=== PATIENT | male | born 1970 | race Caucasian/White ===

== ENCOUNTER → 2019-03-29 14:59 | Outpatient (CLI) | payer MEDICARE, SELFPAY ==
[2019-03-29 15:40] LABS: Basophils % 0.3 % (0.1-2.0); Eosinophils % 0.1 % (0.1-12.0); Hematocrit 52.3 % (42.0-52.0); Hemoglobin 17.6 g/dL (14.1-18.0); Lymphocytes # 2.1 K/mm3 (0.7-4.5); Lymphocytes % 18.7 % (10-50); Mean Corpuscular HGB Conc 33.7 g/dL (31.8-35.4); Mean Corpuscular Hemoglobin 31.2 pg (27.0-31.2); Mean Corpuscular Volume 92.7 fl (80-94); Mean Platelet Volume 11.1 fl (7.4-10.4); Monocytes # 0.6 K/mm3 (0.1-1.0); Monocytes % 5.7 % (1.7-9.3); Neutrophils # 8.5 K/mm3 (1.8-7.8); Neutrophils % 75.2 % (37.0-80.0); Platelet Count 193 K/mm3 (142-424); Red Blood Count 5.64 M/mm3 (4.60-6.20); Red Cell Distribution Width 12.9 % (11.5-17.5); White Blood Count 11.3 K/mm3 (4.8-10.8)
[2019-03-29 16:44] LABS: Alanine Aminotransferase 20 U/L (12-78); Albumin Level 4.3 gm/dL (3.4-5.0); Albumin/Globulin Ratio 1.2 (1.1-1.8); Alkaline Phosphatase 111 U/L (46-116); Anion Gap 17.6 mEq/L (5-15); Aspartate Amino Transferase 10 U/L (15-37); Bilirubin,Total 0.6 mg/dL (0.2-1.0); Blood Urea Nitrogen 13 mg/dL (7-18); Calcium 9.9 mg/dL (8.5-10.1); Carbon Dioxide 25 mmol/L (21.0-32.0); Chloride 104 mmol/L (98-107); Chol/HDL Ratio 7.6 (1-3.5); Cholesterol 258 mg/dL (140-200); Creatinine,Serum 1.07 mg/dL (0.70-1.30); Estimated Glomerular Filt Rate 73 ml/min (>60); GFR (African American) 89 ML/MIN (>60); Globulin 3.5 gm/dl (1.3-3.2); Glucose 122 mg/dL (74-106); HDL Cholesterol 34 mg/dL (27-67); LDL Cholesterol 202 mg/dL (0-130); Potassium 4.6 mmoL/L (3.5-5.1); Sodium 142 mmol/L (136-145); T4 (Thyroxine) 8.8 ug/dl (4.7-13.3); Thyroid Stimulating Hormone 0.71 uIU/ml (0.358-3.740); Total Protein,Serum 7.8 gm/dL (6.4-8.2); Triglycerides 111 mg/dL (30-200); VLDL Cholesterol 22 mg/dL (0-40)
[2019-03-30 15:09] LABS: Hemoglobin A1C 5.6 % (0.0-7.0)
[2019-03-31 11:27] LABS: Vitamin D 25 Hydroxy 17.8 ng/mL (30.0-100.0)
== END ==
PROVIDERS: Visit Provider Physician Assistant
DX: I10 Essential (primary) hypertension (principal); R73.9 Hyperglycemia, unspecified
CPT/HCPCS: 80053; 80061; 82652; 83036; 84436; 84443; 85025

== ENCOUNTER → 2020-06-18 14:14 | Outpatient (CLI) | payer MEDICARE, MEDICAID, SELFPAY ==
[2020-06-18 14:35] LABS: Alanine Aminotransferase 41 U/L (12-78); Albumin Level 4.7 g/dl (3.5-5.0); Albumin/Globulin Ratio 1.6 (1.1-1.8); Alkaline Phosphatase 109 U/L (38-126); Anion Gap 16.4 mEq/L (5-15); Aspartate Amino Transferase 30 U/L (17-59); Bilirubin,Total 0.6 mg/dl (0.2-1.3); Blood Urea Nitrogen 14 mg/dl (9-20); Calcium 9.8 mg/dl (8.4-10.2); Carbon Dioxide 24 mmol/L (22.0-30.0); Chloride 104 mmol/L (98-107); Chol/HDL Ratio 8.6 (1-3.5); Cholesterol 250 mg/dl (140-200); Estimated Glomerular Filt Rate 79 ml/min (>60); GFR (African American) 96 ML/MIN (>60); Globulin 2.9 g/dL (1.3-3.2); Glucose 104 mg/dl (74-100); HDL Cholesterol 29 mg/dl (40-60); Potassium 4.4 mmoL/L (3.5-5.1); Sodium 140 mmol/L (136-145); Total Protein,Serum 7.6 g/dl (6.3-8.2); Triglycerides 354 mg/dl (30-150); VLDL Cholesterol 71 mg/dL (0-40)
[2020-06-18 14:38] LABS: Basophils # 0.1 K/mm3 (0-0.2); Basophils % 0.4 % (0.1-2.0); Eosinophils # 0.2 K/mm3 (0.0-0.4); Eosinophils % 1.4 % (0.1-12.0); Hematocrit 49.2 % (42.0-52.0); Hemoglobin 17.1 g/dL (14.1-18.0); Lymphocytes # 2.8 K/mm3 (0.7-4.5); Lymphocytes % 16.4 % (10-50); Mean Corpuscular HGB Conc 34.7 g/dL (31.8-35.4); Mean Corpuscular Hemoglobin 31.6 pg (27.0-31.2); Mean Corpuscular Volume 91.2 fl (80-94); Mean Platelet Volume 10.9 fl (7.4-10.4); Monocytes % 5.8 % (1.7-9.3); Neutrophils # 13.1 K/mm3 (1.8-7.8); Platelet Count 184 K/mm3 (142-424); Red Blood Count 5.39 M/mm3 (4.60-6.20); Red Cell Distribution Width 13.7 % (11.5-17.5); White Blood Count 17.2 K/mm3 (4.8-10.8)
[2020-06-18 14:46] LABS: Direct LDL Cholesterol 124.99 mg/dL (100-129)
[2020-06-18 14:52] LABS: 25-OH Vitamin D, Total 29.4 ng/mL (30-100)
[2020-06-18 14:59] LABS: MANUAL DIFFERENTIAL MANUAL DIFFERENTIAL (MANUAL DIFF)
[2020-06-18 15:06] LABS: Prostate Specific Ag Screen 1.8 ng/ml (0.0-4.0); Thyroid Stimulating Hormone 1.07 uIU/mL (0.465-4.68)
[2020-06-18 16:32] LABS: Eosinophils % 4 % (0-3); Lymphocytes % 10 % (10-50); Monocytes % 2 % (2-9); Neutrophils % 82 % (42-76); Total Cells Counted 100
[2020-06-18 16:33] LABS: Platelet Estimate Normal; RBC Morphology Normal
== END ==
PROVIDERS: Visit Provider Physician Assistant
DX: E55.9 Vitamin D deficiency, unspecified (principal); E78.00 Pure hypercholesterolemia, unspecified; I10 Essential (primary) hypertension; M54.5 Low back pain; Z12.5 Encounter for screening for malignant neoplasm of prostate
CPT/HCPCS: 80053; 80061; 82306; 84439; 84443; 85007; 85025; G0103

== ENCOUNTER → 2020-06-25 17:51 | Outpatient (CLI) | payer MEDICARE, MEDICAID, SELFPAY ==
[2020-06-25 18:17] LABS: Basophils # 0.1 K/mm3 (0-0.2); Basophils % 0.6 % (0.1-2.0); Eosinophils # 0.2 K/mm3 (0.0-0.4); Eosinophils % 1.9 % (0.1-12.0); Hematocrit 49.5 % (42.0-52.0); Hemoglobin 16.6 g/dL (14.1-18.0); Lymphocytes # 4.2 K/mm3 (0.7-4.5); Lymphocytes % 33.2 % (10-50); Mean Corpuscular HGB Conc 33.5 g/dL (31.8-35.4); Mean Corpuscular Volume 92.3 fl (80-94); Mean Platelet Volume 11.6 fl (7.4-10.4); Monocytes # 0.8 K/mm3 (0.1-1.0); Monocytes % 5.9 % (1.7-9.3); Neutrophils # 7.5 K/mm3 (1.8-7.8); Neutrophils % 58.4 % (37.0-80.0); Platelet Count 201 K/mm3 (142-424); Red Blood Count 5.36 M/mm3 (4.60-6.20); Red Cell Distribution Width 13.4 % (11.5-17.5); White Blood Count 12.8 K/mm3 (4.8-10.8)
== END ==
PROVIDERS: Visit Provider Physician Assistant
DX: D72.9 Disorder of white blood cells, unspecified (principal); E78.00 Pure hypercholesterolemia, unspecified
CPT/HCPCS: 85025

== ENCOUNTER 2020-07-09 11:00 | Outpatient (RCR) | payer MEDICARE, MEDICAID, SELFPAY ==
--- NOTE | 2020-06-25 14:43 | HMH.PTOPEV ---
PT Outpatient Evaluation Rehab PT Outpatient Evaluation Start: 06/25/20 14:30 Freq: Status: Active Protocol: Document 06/25/20 14:30 KARLOS (Rec: 06/25/20 14:43 KARLOS [id number]) Electronically Signed By Eulalio Ricci, PT 06/25/20 14:30 Outpatient Therapy Subjective History Subjective History Pt reports h/o chronic LBP for 30+yrs with exacerbation over the last ~year. Pt reports R> L sided LBP with severe R LE radicular s/s (ant R hip pain- sharp) from hip to foot. Pt also reports chronic neck pain for 1-2 yrs. 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 Chief Complaint Pain,Stiff,Clicks,Paresthesia, Weakness Symptom Type Ache,Throb,Sharp,Dull,Stabbing ,Burning,Numbness,Tingling Symptoms Relieved By Rest/Positioning,Heat Symptoms Aggravated By Standing,Bending/Stooping, Physical Activity,Twisting, Walking,Lifting Prior Functional Limitations Lifting,Housework,Standing, Walking Current Functional Limitations Lifting,Housework,Standing, Walking Symptom Description Constant but Variable Level of pain today (0-10) 6 Pain scale - at its best (0-10) 4 Pain scale - at its worst (0-10) 10 Cervical Eval Palpation Cervical Muscles R Cervical Paraspinal,R Upper Trapezius Cervical/Thoracic Palpation Findings Tenderness,Trigger Point Posture Head/C-Spine Posture Sitting Position Flexed Head/C-Spine Posture Standing Position Flexed Flexibility Deficits Upper Trapezius Muscle Length (R) Moderate Tightness Passive Joint Mobility Cervical PIVM WNL: R OA L OA R AA L AA R C2/3 L C2/3 R C3/4 L C3/4 R C4/5 L C4/5 R C5/6 L C5/6 R C6/7 L C6/7 R C7/T1 L C7/T1 AROM Cervical Spine Extension Active Range of 0-45 M
== END 2020-07-09 11:05 | disposition home or self-care (01) ==
LOC: PT 11:00
PROVIDERS: PCP Physician Assistant; Visit Provider Physician Assistant
DX: M54.2 Cervicalgia (principal); M54.5 Low back pain
CPT/HCPCS: 97010; 97012; 97014; 97163; G0283

== ENCOUNTER → 2020-08-23 14:05 | Outpatient (CLI) | payer MEDICARE, MEDICAID, SELFPAY ==
[2020-08-23 14:39] LABS: Amphetamine/Metha Screen,Urine Negative ng/ml (<1000)
[2020-08-23 14:40] LABS: Barbiturates Screen,Urine Negative ng/ml (<200)
[2020-08-23 14:41] LABS: Benzodiazepines Screen,Urine Negative ng/ml (<200)
[2020-08-23 14:42] LABS: Cannabinoid Screen,Urine Positive ng/ml (<50); Cocaine Screen,Urine Negative ng/ml (<300)
[2020-08-23 14:44] LABS: Methadone Screen,Urine Negative ng/ml (<300); Opiate Screen,Urine Positive ng/ml (<300)
[2020-08-23 14:45] LABS: Phencyclidine Screen,Urine Negative ng/ml (<25)
== END ==
PROVIDERS: Visit Provider Physician Assistant
DX: Z79.899 Other long term (current) drug therapy (principal)
CPT/HCPCS: 80305

== ENCOUNTER → 2021-01-16 08:31 | Outpatient (CLI) | payer MEDICARE, MEDICAID, SELFPAY ==
--- NOTE | 2021-01-16 08:37 | CA_ITS ---
APPROVED REPORT Pmp Project Manager: Amira Mercado RVT Study Quality: Good Indications: hypertension,Hx of kidney stones Risk Factors Hypertension Smoking Renal Artery Doppler Origin (R) 181.2/ cm/sec Proximal (R) 191.5/ cm/sec Mid (R) 204.3/ cm/sec Distal (R) 202.3/ cm/sec Renal Aorta Ratio (R) 0.00 Segmental A. (R) 72.3/17.1 cm/sec RI: 0.76 Segmental A. Sup (R) 46.2/16.1 cm/sec Segmental A. Mid (R) 72.3/17.1 cm/sec Segmental A. Inf (R) 65.3/20.1 cm/sec Origin (L) 197.8/ cm/sec Proximal (L) 172.5/ cm/sec Mid (L) 200.5/ cm/sec Distal (L) 162.7/ cm/sec Renal Aorta Ratio (L) 0.00 Segmental A. (L) 74.6/14.3 cm/sec RI: 0.80 Segmental A. Sup (L) 57.1/15.9 cm/sec Segmental A. Mid (L) 74.6/14.3 cm/sec Segmental A. Inf (L) 46.8/13.5 cm/sec Renal Measurements Kidney Size (R) 12.6x9.0 cm Cortical Thickness (R) 1.5 cm Kidney Size (L) 11.3x8.3 cm Cortical Thickness (L) 1.7 cm Findings Study suggests less than 60% stenosis of the right renal artery. Study suggests less than 60% stenosis of the left renal artery. Moderate to severe hydronephrosis of the right kidney seen. Conclusion Study suggests less than 60% stenosis of the right renal artery. Study suggests less than 60% stenosis of the left renal artery. Moderate to severe hydronephrosis of the right kidney seen. Electronically signed by : Guillermo Romano MD 01/16/2021 17:21:07
== END ==
PROVIDERS: PCP Physician Assistant; Visit Provider Physician Assistant
DX: I10 Essential (primary) hypertension (principal)
CPT/HCPCS: 93976

== ENCOUNTER → 2021-03-04 13:25 | Outpatient (CLI) | payer MEDICARE, MEDICAID, SELFPAY ==
--- NOTE | 2021-03-04 13:27 | CA_ITS ---
APPROVED REPORT EXAM: Comprehensive 2D, Doppler, and color-flow Echocardiogram Recruitment Manager: MOY Mccray, RVS Ht: 5 ft 7 in Wt: 192lbs BSA: 1.99 BP: 140/88 mmHg Indications: HTN, Dizziness, Smoker 2D Dimensions LA Volume 42.10 mL LA Volume Index 21.20 mL/m2 (M/F) 16-34 M-Mode Dimensions RVDd 2.15 cm (0.9-2.6) LA Diam 3.63 cm (1.9-4.0) LVDd 4.63 cm (3.5-5.7) Ao Diam 2.96 cm (2.0-3.7) LVDs 2.62 cm (3.5-5.7) IVSd 0.84 cm (0.6-1.1) PWd 0.91 cm (0.6-1.1) EF (Teich) 74.60% EPSs 0.30 cm FS 43.40% EDV (Teich) 98.80 mL TAPSE 2.10 (<1.7) ESV (Teich) 25.10 mL LV Diastology E Decel Time 150.00 (160-240 msec) E/A Ratio 1.47 MED E' 8.90 (< 7 cm/sec) MED A' 11.30 cm/s E'/MED E' Ratio 10.43 (>14) Aortic Valve LVOT Max 115.00 (70-110 cm/s) LVOT VTI 24.82 cm AoV Peak Shimon. 122.00 (50-130 cm/s) AO Peak GR. 6.00 mmHg AO Mean GR. 3.00 (<5 mmHg) AO VTI 26.75 (18-25 cm) Mitral Valve MV A Velocity 63.00 (40-130 cm/s) E/A Ratio 1.47 MV Decel. Time 150.00 (160-240 ms) Pulmonary Valve PV Peak Velocity 96.00 (50-150 cm/s) Left Ventricle Left atrium is mildly enlarged, left ventricle is normal size, mild concentric left ventricular hypertrophy, visually estimated ejection fraction 55% with no regional wall motion abnormality, diastolic parameters are within normal range. Right Ventricle Right atrium and right ventricle are normal size and contractility. Aortic Valve Aortic valve is minimally thickened and fibrosed, there is no aortic stenosis or aortic insufficiency. Mitral Valve Mitral valve grossly normal, there is trace mitral regurgitation. Tricuspid Valve Tricuspid valve grossly normal, there is trace tricuspid regurgitation, tricuspid regurgitation jet velocity is inadequate for calculation of the right ventricular systolic pressure. Pulmonic Valve Pulmonic valve is poorly visualized. Great Vessels Aortic root is normal size. Inferior vena cava is normal size with normal inspiratory collapse. Pericardium No significant pericardial effusion noted. Conclusion 1. Mildly enlarged left atrium, normal left ventricular size, mild concentric left ventricular hypertrophy, visually estimated ejection fraction 55% with no regional wall motion abnormality, diastolic parameters are within normal range. 2. Trace mitral and tricuspid regurgitation. 3. No significant pericardial effusion. 4. Inferior vena cava normal size with normal inspiratory collapse. Electronically signed by : Mt Montes MD 03/04/2021 20:11:16
--- NOTE | 2021-03-04 13:30 | CT_ITS ---
FINAL REPORT TECHNIQUE: Axial images through the abdomen and pelvis were performed without contrast. This study was performed with techniques to keep radiation doses as low as reasonably achievable, (ALARA). Individualized dose reduction techniques using automated exposure control or adjustment of mA and/or kV according to the patient's size were employed. CLINICAL HISTORY: hydronephrosis FINDINGS: Abdomen: There is a calcified granuloma in the right lung base. The gallbladder is present. The liver parenchyma is homogeneous. The spleen, pancreas and adrenals are unremarkable. There are tiny, bilateral nonobstructing kidney stones. There is a stone in the proximal right ureter measuring 13 mm in greatest dimension. There is moderate right hydronephrosis and hydroureter. Pelvis: The urinary bladder is unremarkable. The appendix is unremarkable. There is no pelvic mass or inflammation. IMPRESSION: 13 mm obstructing stone in the mid right ureter with moderate hydronephrosis and hydroureter. Reviewed, Interpreted and Dictated by Ariel Burgess MD Transcribed by Christine Monterroso Authenticated by Ariel Burgess MD on 03/04/2021 03:26:26 PM [facility]
== END ==
PROVIDERS: PCP Physician Assistant; Visit Provider Physician Assistant
DX: I10 Essential (primary) hypertension (principal); Z72.0 Tobacco use; N13.30 Unspecified hydronephrosis; R42 Dizziness and giddiness; I25.10 Atherosclerotic heart disease of native coronary artery without angina pectoris
CPT/HCPCS: 74176; 93306

== ENCOUNTER → 2021-03-25 14:02 | Outpatient (CLI) | payer MEDICARE, MEDICAID, SELFPAY ==
--- NOTE | 2021-03-25 14:08 | XR_ITS ---
FINAL REPORT CLINICAL HISTORY: history of kidney stones; right sided flank pain FINDINGS: SINGLE VIEW ABDOMEN There is a nonspecific, nonobstructive gas pattern. There is no bowel dilatation. There is bulky calcification along the right lateral margin of the L4 vertebra measuring 1.5 x 1.0 cm, probably related to a ureteral stone which corresponds in size and location to a stone demonstrated on an abdomen CT dated 03/04/2021 IMPRESSION: Right ureteral stone. Reviewed, Interpreted and Dictated by Ariel Burgess MD Transcribed by Sonia Nance Authenticated by Ariel Burgess MD on 03/25/2021 03:43:[address] [facility]
== END ==
PROVIDERS: PCP Physician Assistant; Visit Provider Urology
DX: R55 Syncope and collapse (principal); N20.0 Calculus of kidney
CPT/HCPCS: 74018

== ENCOUNTER → 2021-04-09 12:34 | Outpatient (CLI) | payer MEDICARE, MEDICAID, SELFPAY ==
[2021-04-09 12:40] LABS: MANUAL DIFFERENTIAL MANUAL DIFFERENTIAL (MANUAL DIFF)
[2021-04-09 13:31] LABS: Basophils # 0.3 K/mm3 (0-0.2); Basophils % 2.5 % (0.1-2.0); Eosinophils # 0.3 K/mm3 (0.0-0.4); Eosinophils % 2.6 % (0.1-12.0); Hematocrit 46.6 % (42.0-52.0); Hemoglobin 15.5 g/dL (14.1-18.0); Lymphocytes # 4.3 K/mm3 (0.7-4.5); Lymphocytes % 32.1 % (10-50); Mean Corpuscular HGB Conc 33.3 g/dL (31.8-35.4); Mean Corpuscular Hemoglobin 32.6 pg (27.0-31.2); Mean Corpuscular Volume 97.9 fl (80-94); Mean Platelet Volume 10.1 fl (7.4-10.4); Monocytes # 0.9 K/mm3 (0.1-1.0); Monocytes % 6.4 % (1.7-9.3); Neutrophils # 7.5 K/mm3 (1.8-7.8); Neutrophils % 56.5 % (37.0-80.0); Platelet Count 197 K/mm3 (142-424); Red Blood Count 4.76 M/mm3 (4.60-6.20); Red Cell Distribution Width 13.7 % (11.5-17.5); White Blood Count 13.3 K/mm3 (4.8-10.8)
[2021-04-09 14:55] LABS: Chloride 100 mmol/L (98-107); Potassium 4.4 mmoL/L (3.5-5.1); Sodium 135 mmol/L (136-145)
[2021-04-09 14:58] LABS: Anion Gap 13.4 mEq/L (5-15); Blood Urea Nitrogen 18 mg/dl (9-20); Calcium 8.8 mg/dl (8.4-10.2); Carbon Dioxide 26 mmol/L (22.0-30.0); Estimated Glomerular Filt Rate 71 ml/min (>60); GFR (African American) 85 ML/MIN (>60); Glucose 103 mg/dl (74-100)
[2021-04-09 16:38] LABS: Anisocytosis 1+; Eosinophils % 2 % (0-3); Hypochromasia 1+; Lymphocytes % 18 % (10-50); Monocytes % 9 % (2-9); Neutrophils % 71 % (42-76); Platelet Estimate P; Total Cells Counted 100
== END ==
PROVIDERS: PCP Physician Assistant; Visit Provider Urology
DX: N20.1 Calculus of ureter (principal); Z01.812 Encounter for preprocedural laboratory examination; Z11.52 Encounter for screening for COVID-19
CPT/HCPCS: 36415; 80048; 85007; 85014; 85018; 85048; 85049; C9803; U0003; U0005

== ENCOUNTER → 2021-04-23 16:00 | Outpatient (CLI) | payer MEDICARE, MEDICAID, SELFPAY ==
[2021-04-23 18:30] LABS: Basophils # 0.1 K/mm3 (0-0.2); Basophils % 1.1 % (0.1-2.0); Eosinophils # 0.3 K/mm3 (0.0-0.4); Eosinophils % 2.1 % (0.1-12.0); Hematocrit 46.7 % (42.0-52.0); Hemoglobin 15.5 g/dL (14.1-18.0); Lymphocytes # 3.8 K/mm3 (0.7-4.5); Lymphocytes % 29.6 % (10-50); Mean Corpuscular HGB Conc 33.2 g/dL (31.8-35.4); Mean Corpuscular Hemoglobin 32.4 pg (27.0-31.2); Mean Corpuscular Volume 97.6 fl (80-94); Mean Platelet Volume 11.6 fl (7.4-10.4); Monocytes # 0.7 K/mm3 (0.1-1.0); Monocytes % 5.5 % (1.7-9.3); Neutrophils # 7.9 K/mm3 (1.8-7.8); Neutrophils % 61.7 % (37.0-80.0); Platelet Count 206 K/mm3 (142-424); Red Blood Count 4.78 M/mm3 (4.60-6.20); Red Cell Distribution Width 13.8 % (11.5-17.5); White Blood Count 12.8 K/mm3 (4.8-10.8)
[2021-04-23 18:51] LABS: Alanine Aminotransferase 20 U/L (12-78); Albumin Level 4.8 g/dl (3.5-5.0); Albumin/Globulin Ratio 1.8 (1.1-1.8); Alkaline Phosphatase 101 U/L (38-126); Anion Gap 15.6 mEq/L (5-15); Aspartate Amino Transferase 22 U/L (17-59); Bilirubin,Total 0.4 mg/dl (0.2-1.3); Blood Urea Nitrogen 16 mg/dl (9-20); Calcium 9.3 mg/dl (8.4-10.2); Carbon Dioxide 26 mmol/L (22.0-30.0); Chloride 103 mmol/L (98-107); Chol/HDL Ratio 9.8 (1-3.5); Cholesterol 196 mg/dl (140-200); Estimated Glomerular Filt Rate 89 ml/min (>60); GFR (African American) 108 ML/MIN (>60); Globulin 2.7 g/dL (1.3-3.2); Glucose 111 mg/dl (74-100); HDL Cholesterol 20 mg/dl (40-60); Potassium 4.6 mmoL/L (3.5-5.1); Sodium 140 mmol/L (136-145); Total Protein,Serum 7.5 g/dl (6.3-8.2)
[2021-04-23 18:58] LABS: Triglycerides 651 mg/dl (30-150)
[2021-04-23 19:03] LABS: Benzodiazepines Screen,Urine Negative ng/ml (<200)
[2021-04-23 19:04] LABS: Amphetamine/Metha Screen,Urine Negative ng/ml (<1000); Barbiturates Screen,Urine Negative ng/ml (<200)
[2021-04-23 19:05] LABS: Cannabinoid Screen,Urine Positive ng/ml (<50); Cocaine Screen,Urine Negative ng/ml (<300)
[2021-04-23 19:06] LABS: Methadone Screen,Urine Negative ng/ml (<300)
[2021-04-23 19:07] LABS: Opiate Screen,Urine Positive ng/ml (<300); Phencyclidine Screen,Urine Negative ng/ml (<25)
[2021-04-23 19:08] LABS: 25-OH Vitamin D, Total 19.7 ng/mL (30-100)
[2021-04-23 19:22] LABS: Thyroid Stimulating Hormone 0.88 uIU/mL (0.465-4.68)
[2021-04-23 19:41] LABS: Vitamin B12 353 pg/mL (239-931)
[2021-04-23 20:06] LABS: Ferritin 345 ng/ml (17.9-464)
== END ==
PROVIDERS: Visit Provider Physician Assistant
DX: E55.9 Vitamin D deficiency, unspecified (principal); R45.4 Irritability and anger; I70.1 Atherosclerosis of renal artery; G89.29 Other chronic pain; M54.2 Cervicalgia; M54.9 Dorsalgia, unspecified; D64.9 Anemia, unspecified; I10 Essential (primary) hypertension; R53.83 Other fatigue; Z79.899 Other long term (current) drug therapy
CPT/HCPCS: 80053; 80061; 80305; 82306; 82607; 82728; 83036; 84443; 85025

== ENCOUNTER → 2021-08-06 13:42 | Outpatient (CLI) | payer MEDICARE, MEDICAID, SELFPAY ==
--- NOTE | 2021-08-06 13:48 | MR_ITS ---
FINAL REPORT CLINICAL HISTORY: neck pain, radiculopathy BUE neck pain , radiculopathy bilateral upper arms headaches numbness down arms no injury or trauma FINDINGS: Multiplanar MR imaging of the cervical spine was performed without contrast. On the sagittal T2-weighted images, disc degeneration is seen throughout. There is mild kyphosis centered on C5-6. There is no evidence of fracture. The vertebral alignment is normal. The cervical spinal cord has an unremarkable appearance without evidence of mass, edema or syrinx. The cervicomedullary junction is normal. C2-3: Uncovertebral osteophytes are present. There is a small central disc protrusion. There is no significant canal stenosis or neural foraminal narrowing. C3-4: Small central disc protrusion is present. There is no significant canal stenosis or neural foraminal narrowing. C4-5: Small central disc protrusion is present. There is no significant canal stenosis or neural foraminal narrowing. C5-6: An annular bulge is present. There is a central disc protrusion which indents the thecal sac. There is mild central canal stenosis with an AP diameter of the thecal sac of 9 mm. C6-7: An annular bulge and uncovertebral osteophytes are present. There is severe right and moderate left neural foraminal narrowing. C7-T1: There is no significant canal stenosis or neural foraminal narrowing. IMPRESSION: Central disc protrusions at multiple levels with mild central canal stenosis at C5-6. Reviewed, Interpreted and Dictated by Cruz Canela III, MD Transcribed by Sonia Nance Authenticated and . [facility]
== END ==
PROVIDERS: PCP Physician Assistant; Visit Provider Physician Assistant
DX: M54.2 Cervicalgia (principal)
CPT/HCPCS: 72141; 76376

== ENCOUNTER → 2021-10-13 14:14 | Outpatient (POV) | payer MEDICARE, MEDICAID, SELFPAY ==
[2021-10-13 14:16] VITALS: BP 115/66; PULSE 61; RESP 20; TEMP 36.5; O2SAT 97; BMI 29.3
--- NOTE | 2021-10-13 15:54 | HMH.PMCON ---
Assessment and Plan (1) Mid back pain Status: Acute Category: Medical Code(s): M54.9 - Dorsalgia, unspecified (2) Low back pain Status: Acute Category: Medical Code(s): M54.50 - Low back pain, unspecified (3) Bilateral leg pain Status: Acute Category: Medical Code(s): M79.604 - Pain in right leg; M79.605 - Pain in left leg (4) Right hip pain Status: Acute Category: Medical Code(s): M25.551 - Pain in right hip (5) SI (sacroiliac) pain Status: Acute Category: Medical Code(s): M53.3 - Sacrococcygeal disorders, not elsewhere classified - Assessment and plan all Dx Assessment and Plan for all problems:: Patient has significant pain in his mid to low back with radiating symptoms down bilateral extremities, primarily right side. Patient had extreme point tenderness along his lumbar spine, right SI and right hip. Positive right Kathy's, Garo's, Gaenslen's, compression and distraction test during today's exam. I have discussed with the patient regarding getting updated imaging of his thoracic and lumbar spine. I will order a MRI of thoracic and lumbar at today's visit. Patient's PCP stated that insurance had denied an MRI previously however, patient's pain is primarily in his mid to low back and images are needed to further evaluate his symptoms and determine plan of care. I have discussed with the patient regarding proceeding forward with a right SI and right hip injection. Risk and benefits were discussed with the patient. He would like to proceed forward with these injections. I will also prescribe the patient a compounding cream. We will schedule the patient for a right SI and right greater trochanteric bursa injection. At her next office visit we will review imaging results and reevaluate symptoms. Patient has been instructed to contact the clinic with any concerns before the next appointment. Dr. Engel has reviewed this note and agrees with this plan of care. This note was dictated using voice recognition software and make contain errors or omissions. HPI - Data of Consult Patient: new to practice Consult date: 10/13/21 Requesting Physician: Erika Barrientos APRN Primary Care Provider: LOUISE Renee Family Provider: LOUISE Montano?C - Consult Narrative Reason for consult: Mid/low back pain, bilateral leg pain History of present illness: Mr. Chris KASPER is a 50 year old male who presents today as a new patient. He is a referral from Susie Jung. Patient states that he has chronic mid to low back pain that radiates down bilateral extremities. Today he rates his pain a 7 out of 10. He states the pain is all in his back. Patient denies any new trauma or injury. He states this pain has been going on for several years. He describes it as a constant ache, stabbing sensation that is worse with increased activity. Patient states he is unable to walk upstairs on occasion. Patient states he has tried [id number] Tylenol and ibuprofen with minimal improvement and he has also used ice and heat. He states he does get more relief using a heating pad. He also states he has seen physical therapy in the last 6 months however it did not improve him symptoms but yet made it more bothersome. Patient also uses lidocaine patches with minimal improvement. He states that his primary care provider has stated that insurance denied an MRI for his back. He does present today with findings of a cervical MRI. Patient is currently prescribed gabapentin 600 mg 3 times a day and [place] 7.5 mg 3 times a day both of these are written by Dr. Tello. Patient denies any side effects from these medications. He does state that these adequately manage his pain. He is interested in injective therapy at this time. His Diaz is [id number]. It has been reviewed and appropriate. CC: Erika Barrientos APRN [facility] History I have reviewed the patient's past medical history: Yes Medical History: Reports:: Anxiety, Hyperlipi
== END ==
PROVIDERS: PCP Physician Assistant; Visit Provider Nurse Practitioner Family
DX: M53.3 Sacrococcygeal disorders, not elsewhere classified (principal); M25.551 Pain in right hip; M79.604 Pain in right leg; M79.605 Pain in left leg; M54.50 Low back pain, unspecified
CPT/HCPCS: 99202; G0463

== ENCOUNTER → 2021-10-17 14:12 | Outpatient (CLI) | payer MEDICARE, MEDICAID, SELFPAY ==
--- NOTE | 2021-10-17 14:19 | MR_ITS ---
FINAL REPORT CLINICAL HISTORY: LOWER BACK PAIN best images possible patient kept moving during scan and was refusing the repeats FINDINGS: Multiplanar MR imaging of the lumbar spine was performed without contrast. Motion on some of the images decreases exam sensitivity. On the sagittal T2-weighted images, disc degeneration is seen at several levels. The vertebral alignment is normal. There is no evidence of fracture. There are multiple hemangiomas. The conus has an unremarkable appearance. No significant canal stenosis is identified. L1-2: An annular bulge is present. There is no significant canal stenosis or neural foraminal narrowing. L2-3: An annular bulge is present. There is no significant canal stenosis or neural foraminal narrowing. L3-4: An annular bulge is present. There is mild bilateral neural foraminal narrowing. L4-5: There is an annular bulge and facet arthropathy. There is moderate right and mild left neural foraminal narrowing. L5-S1: There is an annular bulge, facet arthropathy and vertebral osteophytes. There is moderate bilateral neural foraminal narrowing. IMPRESSION: Multilevel degenerative disc disease with areas of neural foraminal narrowing. Reviewed, Interpreted and Dictated by Cruz Canela III, MD Transcribed by Julian Noel Authenticated and . [facility]
--- NOTE | 2021-10-17 14:20 | MR_ITS ---
FINAL REPORT CLINICAL HISTORY: MID BACK PAIN FINDINGS: Multiplanar MR imaging of the thoracic spine was performed without contrast. On the sagittal T2-weighted images, disc degeneration is seen at multiple levels. There is no evidence of fracture. The vertebral alignment is normal. The thoracic spinal cord has an unremarkable appearance without evidence of mass, edema or syrinx. There is no evidence of significant canal stenosis or cord compression. On the axial images, there is a small right paracentral disc protrusion at T2-T3. There are small central disc protrusions at T3-T4 and T4-T5. There is a right foraminal disc protrusion at T9-T10. These disc protrusions mildly indent the thecal sac but do not result in significant central canal stenosis. No paraspinous soft tissue abnormality is identified. IMPRESSION: Multilevel degenerative disc disease with small disc protrusions but no significant central canal stenosis. Reviewed, Interpreted and Dictated by Cruz Canela III, MD Transcribed by Julian Noel Authenticated and [facility]
== END ==
PROVIDERS: PCP Physician Assistant; Visit Provider Nurse Practitioner Family
DX: M54.6 Pain in thoracic spine (principal); M54.9 Dorsalgia, unspecified; M54.50 Low back pain, unspecified
CPT/HCPCS: 72146; 72148; 76376

== ENCOUNTER → 2021-11-21 08:36 | Day surgery (SDC) | payer MEDICARE, MEDICAID, SELFPAY ==
[2021-11-21 08:59] VITALS: BP 174/74; PULSE 67; RESP 20; TEMP 36.5; O2SAT 98; BMI 29.8
[2021-11-21 09:04] VITALS: BP 182/108; PULSE 64; RESP 18; O2SAT 98
[2021-11-21 09:06] VITALS: BP 200/120; PULSE 64; RESP 18; O2SAT 98
--- NOTE | 2021-11-21 09:08 | P.PCN_ITS ---
Procedure Date: 11/21/21 Time: 09:08 Anesthesiologist:: Tiburcio Engel MD Complications:: None Pre-procedure Diagnosis:: Sacroiliitis and trochanteric bursitis Post-procedure Diagnosis:: Same Indications for Procedure:: This patient is a pleasant 50-year-old white male who we are treating for right- sided hip pain. He is tender over his right SI joint. Is positive Kathy's test on the right side. Is positive Manteca's test on the right side. Positive SI joint compression test on the right side. Is also tender over the right trochanteric bursa. We will do a right SI joint injection right trochanteric bursa injection under fluoroscopy today. Procedure Details:: Right SI joint injection under fluoroscopy Informed consent was obtained and the risks and benefits of the procedure was going to the patient. Patient was taken to the procedure room. Patient was placed prone on the procedure table. The right hip was prepped using ChloraPrep. The skin and subcutaneous tissues were anesthetized using lidocaine. I placed a 22-gauge spinal needle into the inferior aspect of the right SI joint. Needle placement was confirmed with dye. After this we injected 5 mL bupivacaine 0.25% and Depo-Medrol 40 mg into the right SI joint. The patient tolerated the procedure well with no complication. Trochanteric bursa injection under fluoroscopy informed consent was obtained and the risk and benefits of the procedure was explained to the patient. The patient was taken to the procedure room. The right hip was prepped using ChloraPrep. The skin and subcutaneous tissues were anesthetized using lidocaine. I placed a 22-gauge spinal needle and advanced under fluoroscopic guidance until it contacted the right greater trochanter. Needle placement was confirmed with dye. After this I injected bupivacaine 0.25% 5 mL and Depo-Medrol 40 mg into the right trochanteric bursa. Patient tolerated the procedure well with no complications. Plan and Disposition:: We will follow-up with this patient in 2 weeks. Reevaluate symptoms at that time
[2021-11-21 09:12] VITALS: BP 172/75; PULSE 62; RESP 20; O2SAT 95
== END | disposition home or self-care (01) ==
PROVIDERS: PCP Physician Assistant; Visit Provider Nurse Anesthetist, Certified Registered
DX: M46.1 Sacroiliitis, not elsewhere classified (principal); M70.61 Trochanteric bursitis, right hip
CPT/HCPCS: 20610; 27096; 77002; G0260; J1030; Q9966

== ENCOUNTER → 2021-12-18 10:06 | Outpatient (POV) | payer MEDICARE, MEDICAID, SELFPAY ==
--- NOTE | 2021-12-18 10:55 | EXP.PAIN.SOA ---
[facility] Pain Management SOAP Note Subjective:: Patient is a pleasant 50-year-old male who presents today for follow-up of right SI injection and right trochanteric bursa injection on 11/21/2021. We are currently treating the patient for greater trochanteric bursitis and sacroiliitis, mid/low back pain. Patient states he has had at least 60% improvement of his symptoms lasting for 2 weeks following those injections. Today he rates his pain a 8 out of 10. He states the pain is still in his low back along the right side and radiating into the right hip and right leg. Patient denies any new trauma or injury. He denies any change in location or type of pain he experiences. Patient states that he did have so much improvement following the last injection that he feels like he did overdo his range of motion and activity level. Patient is currently managed with gabapentin 600 mg 3 times a day and [place] 7.5 mg 3 times a day by Dr. Mccray's office. Patient denies any side effects from these medications. He states these medications do adequately help manage his pain. His Diaz is [phone] with a morphine equivalent of 23. It has been reviewed and appropriate. Review of Systems: General: No recent weight changes, no fever, no sleep disturbances Respiratory: No cough, no shortness of air, no recurring pulmonary infections Cardiovascular/peripheral vascular: No chest pain, no palpitations, no edema, no shortness of breath Gastrointestinal: No new onset incontinence, normal bowel movements reported Genitourinary: No new onset incontinence Musculoskeletal: Low back pain, right hip pain, right leg pain Psychiatric: [Normal mood/affect] Neurological: [Denies weakness in extremities], [denies balance issues] Objective:: Physical Exam: General: Alert and oriented x3, no acute distress, pleasant and cooperative Lungs: Respirations even and unlabored, symmetrical chest expansion Eyes: PERRL Musculoskeletal: Flexion and extension of lumbar [spine] somewhat guarded secondary to pain, [antalgic gait noted]. Extreme point tenderness along right SI and right greater trochanteric bursa. Positive right Kathy's, Garo's, Gaenslen's, compression and distraction exam Neurological: Speech clear, no gross sensory deficit Assessment:: Greater trochanteric bursitis, sacroiliitis, mid/low back pain Plan:: Patient did have significant improvement of at least 60% of his pain symptoms following his last right SI and right bursa injection. Patient was able to increase his activity level and ADLs after that injection. Today the patient is experiencing worsening pain along his right SI and right bursa. Patient had limited range of motion of his lumbar spine and extreme point tenderness at his right SI and right bursa. He also had a positive right Kathy's, Garo's, Gaenslen's, compression and distraction exam. I have discussed with the patient regarding having repeat injections at the sites. Risk and benefits were discussed with the patient. He would like to proceed forward with these injections. We will schedule him for a right SI and right greater trochanteric bursa at today's visit. Patient has been instructed to contact the clinic with any concerns before the next appointment. Dr. Engel has reviewed this note and agrees with this plan of care. This note was dictated using voice recognition software and make contain errors or omissions. [facility] Medical History Bipolar depression Bipolar disorder Chronic neck and back pain COPD (chronic obstructive pulmonary disease) History of back pain Hypertension Low back pain Neck pain PTSD (post-traumatic stress disorder) Renal artery stenosis Social History Smoking Status: Current every day smoker tobacco type: cigarettes packs per day: 1 alcohol intake: never substance use type: marijuana current occupational status: other Travel
[2021-12-18 11:25] VITALS: BP 218/88; PULSE 60; RESP 18; TEMP 36.9; O2SAT 97
== END ==
PROVIDERS: Visit Provider Nurse Practitioner Family
DX: M70.60 Trochanteric bursitis, unspecified hip (principal); M46.1 Sacroiliitis, not elsewhere classified; M54.50 Low back pain, unspecified; Z72.0 Tobacco use
CPT/HCPCS: 99212; G0463

== ENCOUNTER → 2022-04-21 15:40 | Outpatient (CLI) | payer MEDICARE, MEDICAID, SELFPAY ==
[2022-04-21 16:10] LABS: Amphetamine/Metha Screen,Urine Negative ng/ml (<1000)
[2022-04-21 16:11] LABS: Barbiturates Screen,Urine Negative ng/ml (<200)
[2022-04-21 16:12] LABS: Benzodiazepines Screen,Urine Negative ng/ml (<200); Cannabinoid Screen,Urine Positive ng/ml (<50)
[2022-04-21 16:14] LABS: Cocaine Screen,Urine Negative ng/ml (<300); Methadone Screen,Urine Negative ng/ml (<300)
[2022-04-21 16:15] LABS: Opiate Screen,Urine Positive ng/ml (<300); Phencyclidine Screen,Urine Negative ng/ml (<25)
== END ==
PROVIDERS: PCP Physician Assistant; Visit Provider Physician Assistant
DX: G89.29 Other chronic pain (principal); M54.2 Cervicalgia; M54.9 Dorsalgia, unspecified
CPT/HCPCS: 80305

== ENCOUNTER → 2022-06-17 09:59 | Outpatient (CLI) | payer MEDICARE, MEDICAID, SELFPAY | PROVIDERS: PCP Physician Assistant; Visit Provider Physician Assistant | DX: M54.2 Cervicalgia (principal); G89.29 Other chronic pain ==

== ENCOUNTER → 2022-06-17 11:00 | Outpatient (CLI) | payer MEDICARE, MEDICAID, SELFPAY ==
[2022-06-17 16:28] LABS: Amphetamine/Metha Screen,Urine Negative ng/ml (<1000); Barbiturates Screen,Urine Negative ng/ml (<200)
[2022-06-17 16:29] LABS: Benzodiazepines Screen,Urine Negative ng/ml (<200)
[2022-06-17 16:30] LABS: Cannabinoid Screen,Urine Positive ng/ml (<50); Cocaine Screen,Urine Negative ng/ml (<300)
[2022-06-17 16:31] LABS: Methadone Screen,Urine Negative ng/ml (<300); Opiate Screen,Urine Positive ng/ml (<300)
[2022-06-17 16:32] LABS: Phencyclidine Screen,Urine Negative ng/ml (<25)
== END ==
PROVIDERS: PCP Physician Assistant; Visit Provider Physician Assistant
DX: G89.29 Other chronic pain (principal); M54.2 Cervicalgia; M54.9 Dorsalgia, unspecified
CPT/HCPCS: 80305

== ENCOUNTER → 2023-02-03 12:00 | Outpatient (CLI) | payer MEDICARE, SELFPAY ==
[2023-02-03 20:07] LABS: Amphetamine/Metha Screen,Urine Negative ng/ml (<1000)
[2023-02-03 20:08] LABS: Barbiturates Screen,Urine Negative ng/ml (<200)
[2023-02-03 20:10] LABS: Benzodiazepines Screen,Urine Negative ng/ml (<200); Cannabinoid Screen,Urine Positive ng/ml (<50)
[2023-02-03 20:11] LABS: Cocaine Screen,Urine Negative ng/ml (<300); Methadone Screen,Urine Negative ng/ml (<300)
[2023-02-03 20:12] LABS: Opiate Screen,Urine Positive ng/ml (<300)
[2023-02-03 20:13] LABS: Phencyclidine Screen,Urine Negative ng/ml (<25)
== END ==
PROVIDERS: PCP Nurse Practitioner Family; Visit Provider Physician Assistant
DX: G89.29 Other chronic pain (principal); M54.2 Cervicalgia; M54.9 Dorsalgia, unspecified
CPT/HCPCS: 80305

== ENCOUNTER 2023-03-10 18:28 | Outpatient (CLI) | payer MEDICARE, SELFPAY ==
[2023-03-10 22:21] LABS: Amphetamine/Metha Screen,Urine Negative ng/ml (<1000); Barbiturates Screen,Urine Negative ng/ml (<200); Benzodiazepines Screen,Urine Negative ng/ml (<200); Cannabinoid Screen,Urine Positive ng/ml (<50); Cocaine Screen,Urine Negative ng/ml (<300); Methadone Screen,Urine Negative ng/ml (<300); Opiate Screen,Urine Positive ng/ml (<300); Phencyclidine Screen,Urine Negative ng/ml (<25)
== END 2023-03-10 23:59 ==
LOC: LAB.DROPOF 18:29
PROVIDERS: PCP Physician Assistant; Visit Provider Physician Assistant
DX: G89.29 Other chronic pain (principal); M54.2 Cervicalgia; M54.9 Dorsalgia, unspecified
CPT/HCPCS: 80307

== ENCOUNTER 2023-10-05 12:43 | Outpatient (RCR) | payer MEDICARE, SELFPAY ==
--- NOTE | 2023-10-05 13:53 | HMH.PTOPEV ---
PT Outpatient Evaluation Rehab PT Outpatient Evaluation Start: 10/05/23 12:57 Freq: Status: Active Protocol: Document 10/05/23 13:30 PEARL (Rec: 10/05/23 13:53 PEARL [id number]) E-signed By Erika Lloyd, PT Outpatient Therapy Subjective History Subjective History Pt is a 52 y/o male who reports he suffered a CVA on . Pt reports he woke up that morning with difficulty speaking. Pt reports he was hospitalized at for 3 days then returned home with family . Pt reports he did fall twice upon initial arrival home, denies injuries from the falls . Pt denies recent falls and states his balance has improved. Pt reports he had minimal right sided weakness initially which has improved. Pt reports his main deficits are with speech, memory and using his RUE for feeding. Medical History: Chronic neck and back pain, COPD, Renal artery stenosis, Bipolar, depression, PTSD, hypertension 5x sit to stand: 12 New diagnosis of cancer in past 12 No months? Hip/Knee Eval Gait Observation General Gait Pattern Observation No Deviations/Normal Assistive Device Assistive Devices None / NA MMT bilateral Hip Flexion Strength Grade 5 Normal Hip Abduction Strength Grade 5 Normal Hip Adduction Strength Grade 5 Normal Hip Extension Strength Grade 5 Normal Knee Extension Strength Grade 5 Normal Knee Flexion Strength Grade 5 Normal Balance Eval Timed Up and Go Test 1. Is the Timed Up and Go test result > no or = to 12 seconds? 3. Is the Timed Up and Go Test result < yes 12 seconds? Oculomotor Gaze Oculomotor Gaze Nml: Vergence Smooth Pursuit Saccades VOR Cancellation Cover/Uncover Cross Cover [place] Feet Together/Eyes open/Stable Surface pass Feet Together/Eyes Closed/Stable Surface pass Feet Together/Eyes open/Unstable Surface pass Feet Together/Eyes Closed/Unstable pass Surface Outpatient Therapy Assessment Prognosis Rehab Potential Innapropriate for Skilled Therapy Comment Pt without outpatient PT needs at this time. Pt is to be evaluated by speech and OT for main complaints. Outpatient Therapy Plan of Care Addendums This patient is a candidate for social No or vocational rehab? Patient/Guardian verbally acknowledges Yes understanding of treatment program and consents to further treatment? Patient/Guardian verbally acknowledges Yes understanding of diagnosis, prognosis and goals for treatment? Eval Complexity PT Charges 31815 - Moderate Complexity Shoulder/Elbow Eval Shoulder Objective Measurements Elbow Objective Measurements PHYSICIAN CERTIFICATION: I certify the specified therapy services for Nicanor Georgemoshe Perez II are required, authorized, and reviewed every 30 days.
== END 2023-10-05 12:45 | disposition home or self-care (01) ==
LOC: PT 12:43
PROVIDERS: Visit Provider Physician Assistant
DX: R53.1 Weakness (principal); Z86.73 Personal history of transient ischemic attack (TIA), and cerebral infarction without residual deficits
CPT/HCPCS: 97163

== ENCOUNTER 2023-10-05 12:47 | Outpatient (RCR) | payer MEDICARE, SELFPAY ==
--- NOTE | 2023-10-12 09:38 | HMH.SLAPHASI ---
Speech & Language Evaluation Speech/Language Aphasia Evaluation Start: 10/12/23 09:15 Freq: once Status: Complete Protocol: Document 10/05/23 15:50 ELIZABETH (Rec: 10/12/23 09:38 ELIZABETH [id number]) Aphasia Assessment/Goals/Plan Assessment Date of Evaluation: 10/05/23 Evaluation Type Initial Certification Assessment/Problems CVA per MD order Does Patient Qualify for Service Yes Qualify/Failure Comment Based on clinical observations , informal assessment results, and caregiver interview, pt would benefit from skilled speech therapy services 2x/ week to address expressive aphasia and cognitive- linguistic deficits. 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 Increase cognitive skills to communicate Yes: 60% w/family & friends Education Instructions provided Discussed assessment results and POC with pt and his both of which expressed understanding. Pt/Caregiver Able to Recall Information Able to recall/restate Reinforcement needed No Speech & Language HPI History Present Illness Description of Patient Problem Mr. Iain Perez is a 52 year old male who presented at [facility] for an aphasia evaluation following stroke on 08/28/23. Per report pt suffered a left MCA ishemic stroke. states Mr. Perez has minimal communication and becomes easily agitated and frustrated with primary means of communication being yes/no questions. Throughout the evaluation, pt was found to be frustrated and irritated with presented therapeutic tasks. Pt was observed to vyas when asked to complete tasks and/or roll his eyes at the beginning of the assessment. As tasks became more difficult , pt was found to display frustrations through course language as he cursed profanities at therapist. FIELD TRAINER attempted to reiterate the importance of obtaining this information and how some assessment tasks will be mimicking what will be targeted and how it will be targeted in speech therapy sessions. He attempted to terminate evaluation on multiple attempts, slamming hands on table and attempting to stand up. was required throughout the assessment to tell pt to calm down stating to therapist that he gets like this at home and that it at times is worse. Rehab Services Assessed Speech therapy Is this evaluation r/t stroke? Yes Aphasia Evaluations Communication Speech Intelligibility Pt is severely aphasic and speaks primary with yes/no. At times, he was able to curse profanities at therapist 2' frustration and at one point stated I'm done with this s *. This was the only full sentence observed throughout the assessment. Auditory Comprehension Yes: Word Level Sentences No: Following Directions AC Comment FIELD TRAINER unable to fully assess following directional tasks 2' noncompliance and pt stating no, no, no but when given multiple repetitions he was able to complete one step with 62% accuracy and two steps with 20% accuracy. Verbal Expressive Language No: Automatic Speech Completing Sentences Repetition Abilities Word Level Naming JORDEN Comment Pt stated no when presented with theses tasks, he was able to complete 1/5 automatic speech tasks and 2/10 automatic speech tasks with max prompting and cues. Written Language Yes: Copy Shapes No: Signature Copy Words AOM Comment Unable to appropriately assess 2' noncompliance and expressive aphasia. Additional Evaluation(s) Additional Tests Pt was given an informal cognitive-linguistic evaluation that assessed basic orientation (provided pt with FO2 and was only able to provide '--' for Wednesday) language comprehension including: ( id of body parts (WFL with moderate repetitions ), ID of objects (35% accuracy ) ID by function (refused to complete task) conversation comprehension (refused to complete), 1-2 step commands ( completed with 40% accuracy) simple/complex yes and no questions (50%accuracy) paragraph comprehension (1/5 questions answered correctly), written language comprehension (pt refused this portion of assessment) language expression including: automatic speech (10%); pt was noncompliant with attempting this task, , apraxia screen (60%). At this point, FIELD TRAINER was unable to further assess cognitive- linguistic skills due to pt's level of agitation and frustration as he increasingly cursed at therapist and attempted to leave to the point where was repeatedly having to tell him to calm down. FIELD TRAINER attempted to provide education on skilled speech therapy session set up and how what was targeted during the assessment is likely how treatment will be set up. Pt was visually upset. Overall, based on observations made and results of assessment, pt would benefit from skilled speech therapy services to address these deficits. He would also benefit from referral to Behavioral Health and Occupational Therapy Services. PHYSICIAN CERTIFICATION: I certify the specified therapy services for Nicanor Timmons Chris KASPER are required, authorized, and reviewed every 30 days.
== END 2023-10-05 12:50 | disposition home or self-care (01) ==
LOC: ST 12:47
PROVIDERS: Visit Provider Physician Assistant
DX: I69.320 Aphasia following cerebral infarction (principal)
CPT/HCPCS: 92523